=== PATIENT | male | born 2000 | race Caucasian/White ===

== ENCOUNTER 2024-09-19 23:08 | Emergency (ER) | payer OTHER ==
[~2024-09-19] VITALS: Ht 180.3 cm; Wt 83.9 kg
[2024-09-20] MEDS ORDERED: NAPROXEN250 MG PO (01:25)
[2024-09-20] MEDS ORDERED: METHOCARBAMOL500 M1 PO (01:25)
== END 2024-09-20 01:43 | disposition home or self-care (01) ==
LOC: ED 23:08
DX: S60.222A Contusion of left hand, initial encounter (principal); R51.9 Headache, unspecified; V89.2XXA Person injured in unspecified motor-vehicle accident, traffic, initial encounter; Y93.I9 Activity, other involving external motion; Y92.488 Other paved roadways as the place of occurrence of the external cause; Y99.8 Other external cause status